=== PATIENT | female | born 1990 | race Caucasian/White ===

== ENCOUNTER 2018-05-13 14:26 | Emergency (ER) | payer OTHER ==
[~2018-05-13] VITALS: Ht 160 cm; Wt 63.5 kg
[~2018-05-13 14:26] MED LIST: CYCLOBENZAPRINE5 MG PO; IBUPROFEN 400400 M1 PO; NAPROSYN500 MG PO
[2018-05-13] MEDS ORDERED: ROBAXIN 750 MG750 M1 PO (15:55)
[2018-05-13] MEDS ORDERED: NABUMETONE 750750 M1 PO (15:55)
[2018-05-13 16:56] VITALS: BP 111/66
== END 2018-05-13 16:58 | disposition home or self-care (01) ==
LOC: M.ERS 14:26
DX: S16.1XXA Strain of muscle, fascia and tendon at neck level, initial encounter (principal); S80.02XA Contusion of left knee, initial encounter; S20.212A Contusion of left front wall of thorax, initial encounter; R91.1 Solitary pulmonary nodule; F17.210 Nicotine dependence, cigarettes, uncomplicated; V89.2XXA Person injured in unspecified motor-vehicle accident, traffic, initial encounter; Y93.89 Activity, other specified; Y92.89 Other specified places as the place of occurrence of the external cause; Y99.8 Other external cause status

== ENCOUNTER → 2018-05-23 | Outpatient (CLI) | payer OTHER ==
[~2018-05-23] MED LIST changes: +NABUMETONE 750750 M1 PO; +ROBAXIN 750 MG750 M1 PO
== END ==
LOC: M.CT 05-20 13:00
DX: R91.1 Solitary pulmonary nodule (principal); R11.10 Vomiting, unspecified